=== PATIENT | female | born 1955 | race Caucasian/White ===

== ENCOUNTER → 2016-11-23 | Day surgery (SDC) | payer OTHER ==
[~2016-11-23] MED LIST: NO MEDICATIONS
--- NOTE | ~2016-11-23 | OR ---
Unit #: [id number] #: [id number] Patient: DEE DEE MILLER [id number] [address] [address] [id number] O MR#: [id number] NAME: DEE DEE MILLER ROOM: Date of Procedure: 11/23/2016 Admission Date: 11/23/2016 Surgeon: James Valdez III, M.D. : 1955 Attending Physician: James Valdez III, M.D. Primary Care Physician: Lisandra Cohen A.P.R.N. OPERATIVE REPORT PREOPERATIVE DIAGNOSIS Screening colonoscopy. POSTOPERATIVE DIAGNOSES Right colon polyp and mild sigmoid diverticulosis. PROCEDURE PERFORMED Colonoscopy to cecum with snare polypectomy x1. ANESTHESIA MAC. SPECIMEN Right colon polyp sent to pathology. COMPLICATIONS None apparent. INDICATIONS FOR PROCEDURE This is a 61-year-old lady, who has no family history of colon cancer and she has not undergone colonoscopy in the past. She is here today for screening purposes. DESCRIPTION OF PROCEDURE After consent was obtained, the patient was brought to the endoscopy suite and placed in the left lateral decubitus position. We titrated the above sedation. I performed a rectal exam and did not feel any masses. The scope was placed within the rectal vault. Air was insufflated and I navigated the scope all the way to the cecum without any difficulty. She had normal mucosa. She had 1 small adenomatous appearing polyp in the right colon. This was snared, cauterized, captured, and sent to pathology. It seemed to be less than 5 mm in diameter. I then saw some mild sigmoid diverticular disease. There were no other abnormalities encountered. The scope was retroflexed within the rectum, no other masses were seen. The scope was then carefully withdrawn. I will have her call my office in a couple of days for biopsy results. Dictated by... James Valdez III, M.D. VCL/modl Unit #: [id number] #: [id number] Patient: DEE DEE MILLER TD: 11/23/2016 08:32 JOB #: [id number] OPERATIVE REPORT X James Valdez III, MD PROCEDURE OPERATIVE NOTE
== END | disposition home or self-care (01) ==
LOC: COPS 05:23
DX: Z12.11 Encounter for screening for malignant neoplasm of colon (principal); D12.6 Benign neoplasm of colon, unspecified; K57.30 Diverticulosis of large intestine without perforation or abscess without bleeding; K21.9 Gastro-esophageal reflux disease without esophagitis; Z87.442 Personal history of urinary calculi; Z90.49 Acquired absence of other specified parts of digestive tract; Z90.710 Acquired absence of both cervix and uterus; Z96.653 Presence of artificial knee joint, bilateral; Z98.890 Other specified postprocedural states
CPT/HCPCS: 88305; J2250

== ENCOUNTER → 2017-02-25 | Outpatient (CLI) | payer OTHER ==
--- NOTE | ~2017-02-25 | CR7 ---
[facility] A Service of [facility] & [facility] RADIOLOGY TEXT RESULTS PATIENT: DEE DEE MILLER LOCATION: [facility] : 55 UNIT #: [id number] AGE: [address]: Ravindra Banks MD SEX: F ORDER DR: [id number] [address] [address] [id number] O MR#: [id number] Acc #: [id number] NAME: DEE DEE MILLER : 1955 SEX: F STUDY DATE/TIME: 02/25/2017 9:17 UNIT: [facility] ROOM: STUDY DESCRIPTION: CR Abdomen Single AP View Attending Physician: Ravindra Banks M.D. Referring Physician: Ravindra Banks M.D. Ordering Physician: Ravindra Banks M.D. Primary Care Physician: Lisandra Cohen A.P.R.N. MEDICAL IMAGING REPORT This report is preliminary unless electronic signature is present. EXAM KUB HISTORY Kidney stones. Renal colic beginning July 2016 TECHNIQUE Single view of the abdomen was obtained and compared with 10/08/2016 FINDINGS No calcifications are seen projecting over the right renal shadow. On the left side there is a linear calcification measuring approximately 6 x 22 mm and adjacent to it in the upper pole is a rounded 3 mm calcification. This is unchanged from the CT scan of 08/23/2016 and from the most recent KUB in September 2016. No calcifications are seen along the expected course of the left ureter. No calcifications are seen along the right ureter. The bowel gas pattern is normal. IMPRESSION Two stones at the upper pole of the left kidney are again noted and unchanged. No suspicious calcifications are seen over the expected course of either ureter. Dictated by... Raul Chapa M.D. THIS IS AN ELECTRONICALLY VERIFIED REPORT Raul Chapa M.D. at 02/25/2017 4:32 PM RLF/jake TD: 02/25/2017 12:58 JOB #: [id number] [facility] A Service of [facility] & [facility] RADIOLOGY TEXT RESULTS PATIENT: DEE DEE MILLER LOCATION: [facility] : 55 UNIT #: [id number] AGE: [address]: Ravindra Banks MD SEX: F ORDER DR: MEDICAL IMAGING REPORT Page 1 of 1
== END | disposition home or self-care (01) ==
LOC: SRAD 09:06
DX: N20.0 Calculus of kidney (principal)
CPT/HCPCS: 74000

== ENCOUNTER → 2017-06-09 | Outpatient (CLI) | payer OTHER ==
--- NOTE | ~2017-06-09 | CR7 ---
[facility] A Service of [facility] & [facility] RADIOLOGY TEXT RESULTS PATIENT: DEE DEE MILLER LOCATION: [facility] : 55 UNIT #: [id number] AGE: [address]: Ravindra Banks MD SEX: F ORDER DR: [id number] [address] [address] [id number] O MR#: [id number] Acc #: [id number] NAME: DEE DEE MILLER : 1955 SEX: F STUDY DATE/TIME: 06/09/2017 8:44 UNIT: [facility] ROOM: STUDY DESCRIPTION: CR Abdomen Single AP View Attending Physician: Ravindra Banks M.D. Referring Physician: Ravindra Banks M.D. Ordering Physician: Ravindra Banks M.D. Primary Care Physician: Lisandra Cohen A.P.R.N. MEDICAL IMAGING REPORT This report is preliminary unless electronic signature is present. EXAM Abdomen. INDICATIONS Low back pain with history of left kidney stones. The patient has had multiple surgeries. Symptoms began in July 2016. FINDINGS A supine view of the abdomen was obtained. There is a 2 mm calcification superimposed on the upper pole of the left kidney that could represent a small stone. No ureteral stones are suggested. The bones are normal. The bowel gas pattern is normal. IMPRESSION There may be a tiny upper pole left renal stone measuring 2 mm in size, otherwise, study appears normal. Dictated by... Stanton Treviño M.D. THIS IS AN ELECTRONICALLY VERIFIED REPORT Stanton Treviño M.D. at 06/09/2017 4:02 PM FEL/bd TD: 06/09/2017 14:23 JOB #: [id number] MEDICAL IMAGING REPORT Page 1 of 1
== END | disposition home or self-care (01) ==
LOC: SRAD 08:21
DX: N20.0 Calculus of kidney (principal); M54.5 Low back pain
CPT/HCPCS: 74000